=== PATIENT | female | born 1930 ===

== ENCOUNTER 2017-11-24 11:18 | Emergency (ER) | payer MEDICARE, OTHER ==
[2017-11-24 11:40] VITALS: BP 156/72; PULSE 97; RESP 18; TEMP 98.5; O2SAT 98
[2017-11-24] MEDS ORDERED: Naproxen 550 mg Tab PO STA (11:51)
[2017-11-24] MEDS ORDERED: Naproxen 550 mg Tab PO ONE (11:54)
--- NOTE | 2017-11-24 12:02 | C.PDOC ---
History Of Present Illness 86 year old female presents to the emergency department with complaints of redness and swelling to her right hand. Patient reports that her symptoms began with redness on Sunday (11-19-17) and started swelling on Sunday (11-21-17). She reports she visited a physician who prescribed her antibiotics and instructed her to return to the emergency department if her symptoms persisted. Patient denies asthma, and diabetes,m but confirms hypertension, hypercholesterolemia, and coronary artery disease for which she is currently taking Plavix. Time Seen by Provider: 11/24/17 11:47 Chief Complaint (Nursing): Finger,Hand,&Wrist History Per: Patient History/Exam Limitations: no limitations Onset/Duration Of Symptoms: Days (5) Current Symptoms Are (Timing): Still Present Quality: "Pain" Past Medical History Vital Signs: Last Vital Signs Temp 98.5 F 11/24/17 11:23 Pulse 97 H 11/24/17 11:23 Resp 18 11/24/17 11:23 BP 156/72 H 11/24/17 11:23 Pulse Ox 98 11/24/17 12:33 - Medical History PMH: CAD, Deep Vein Thrombosis, HTN, Hypercholesterolemia Family History: States: No Known Family Hx - Social History Hx Alcohol Use: No Hx Substance Use: No - Immunization History Hx Tetanus Toxoid Vaccination: No Hx Influenza Vaccination: No Hx Pneumococcal Vaccination: No Review Of Systems Except As Marked, All Systems Reviewed And Found Negative. Musculoskeletal: Positive for: Hand Pain, Other (hand swelling) Physical Exam - Physical Exam Appears: Non-toxic, No Acute Distress Cardiovascular: Rhythm Regular Respiratory: Normal Breath Sounds Extremity: Swelling (noted to dorsal aspect of right hand. ) ED Course And Treatment O2 Sat by Pulse Oximetry: 98 (RA) Pulse Ox Interpretation: Normal Medical Decision Making Medical Decision Making: Plan: Naproxen 550mg PO Tylenol 650mg PO Ice Pack Review X-Ray that was taken on 11-23-17. Disposition Counseled Patient/Family Regarding: Studies Performed, Diagnosis, Need For Followup, Rx Given - Disposition Disposition: HOME/ ROUTINE Disposition Time: 12:02 Condition: STABLE Prescriptions: Naproxen [Naprosyn] 1 tab PO BID PRN #25 tab PRN Reason: Pain Instructions: Osteoarthritis Forms: Gen Discharge Inst Ukrainian, [employer] (Ukrainian) - POA Present On Arrival: None - Clinical Impression Clinical Impression: Osteoarthritis - Scribe Statement The provider has reviewed the documentation as recorded by the Scribe (Shya Herrera) Provider Attestation: All medical record entries made by the Scribe were at my direction and personally dictated by me. I have reviewed the chart and agree that the record accurately reflects my personal performance of the history, physical exam, medical decision making, and the department course for this patient. I have also personally directed, reviewed, and agree with the discharge instructions and disposition.
== END 2017-11-24 12:18 | disposition home or self-care (01) ==
LOC: C.ER 11:18
DX: M19.90 Unspecified osteoarthritis, unspecified site (principal); I10 Essential (primary) hypertension; E78.00 Pure hypercholesterolemia, unspecified; I25.10 Atherosclerotic heart disease of native coronary artery without angina pectoris